=== PATIENT | male | born 1975 | race American Indian/Alaskan Native ===

== ENCOUNTER 2021-06-20 19:23 | Emergency (ER) | payer SELFPAY ==
[2021-06-20 20:21] VITALS: BP 129/97
--- NOTE | 2021-06-21 04:05 | Emergency Department Report ---
ED Male HPI - General Chief complaint: Urogenital-Male Stated complaint: DISCHARGE FROM PENIS Source: patient Mode of arrival: Ambulatory Limitations: No Limitations - History of Present Illness Initial comments: Patient is a 46-year-old -[place] male with no past medical history presents to the ED with acute onset persistent dysuria and take penile purulent discharge for the last 2 days worse in the last 12 hours. Patient also complains of hematuria, urinary frequency and urgency. Patient admits to having unprotected sexual intercourse with a female about a week ago. Patient denies fever, chills, nausea, vomiting, abdominal pain, headache, back pain, testicular pain, change in vision or sore throat. MD Complaint: penile discharge, dysuria -: Sudden, days(s) (2) Location: penis Radiation: none Severity: moderate Severity scale (0 -10): 5 Quality: aching, burning, sharp Consistency: constant Improves with: none Worsens with: urination denies other symptoms, discharge. denies: swelling, mass, rash, urinary retention, blood in urine, dysuria, fever, nausea/vomiting, incontinence - Related Data Sexually active: Yes Allergies Allergy/AdvReac Type Severity Reaction Status Date / Time No Known Allergies Allergy Unverified 06/20/21 20:17 ED Review of Systems ROS: Stated complaint: DISCHARGE FROM PENIS Other details as noted in HPI Constitutional: denies: chills, fever Eyes: denies: eye pain, eye discharge, vision change ENT: denies: ear pain, throat pain Respiratory: denies: cough, shortness of breath, wheezing Cardiovascular: denies: chest pain, palpitations Endocrine: no symptoms reported Gastrointestinal: denies: abdominal pain, nausea, diarrhea Genitourinary: urgency, dysuria, frequency, hematuria, discharge. denies: testicular pain, testicular mass Musculoskeletal: denies: back pain, joint swelling, arthralgia Skin: denies: rash, lesions Neurological: denies: headache, weakness, paresthesias Psychiatric: denies: anxiety, depression Hematological/Lymphatic: denies: easy bleeding, easy bruising ED Past Medical Hx - Past Medical History Previous Medical History?: No - Surgical History Past Surgical History?: No ED Physical Exam - General Limitations: No Limitations General appearance: alert, in no apparent distress - Head Head exam: Present: atraumatic, normocephalic, normal inspection - Eye Eye exam: Present: normal appearance, PERRL, EOMI Pupils: Present: normal accommodation - ENT ENT exam: Present: normal exam, normal orophraynx, mucous membranes moist, TM's normal bilaterally, normal external ear exam - Neck Neck exam: Present: normal inspection, full ROM - Respiratory Respiratory exam: Present: normal lung sounds bilaterally. Absent: respiratory distress, wheezes, rales, rhonchi, chest wall tenderness, accessory muscle use, decreased breath sounds, prolonged expiratory - Cardiovascular Cardiovascular Exam: Present: regular rate, normal rhythm, normal heart sounds. Absent: systolic murmur, diastolic murmur, rubs, gallop - GI/Abdominal GI/Abdominal exam: Present: soft, normal bowel sounds. Absent: tenderness, guarding, rebound, hyperactive bowel sounds, hypoactive bowel sounds, organomegaly - External exam: Present: other (Genital exam deferred at this time) - Extremities Exam Extremities exam: Present: normal inspection, full ROM, normal capillary refill - Back Exam Back exam: Present: normal inspection, full ROM. Absent: tenderness, CVA tenderness (R), CVA tenderness (L), muscle spasm, paraspinal tenderness, vertebral tenderness - Neurological Exam Neurological exam: Present: alert, oriented X3, CN II-XII intact, normal gait, reflexes normal - Psychiatric Psychiatric exam: Present: normal affect, normal mood - Skin Skin exam: Present: warm, dry, intact, normal color. Absent: rash ED Course Vital Signs 06/20/21 20:18 Temperature 98.3 F Pulse Rate 63 Respiratory 18 Rate Blood Pressure 129/97 [Right] O2 Sat by Pulse 100 Oximetry ED Medical Decision Making - Medical Decision Making This is a 46-year-old -[place] male with no past medical history presents to the ED with acute onset persistent dysuria and take penile purulent discharge for the last 2 days worse in the last 12 hours. Patient also complains of hematuria, urinary frequency and urgency. Patient admits to having unprotected sexual intercourse with a female about a week ago. In the ED, patient is alert and oriented x3 and is not in any distress. Per policy of the hospital, patient was advised to follow-up with the [facility] department for STD testing and treatment. Patient was given community resources and discharged from the ED and advised to ensure that his sexual partner also get tested and treated for suspected STD. Patient verbalized understanding although adamant that he wanted to be given a prescription for penicillin to treat his condition. - Differential Diagnosis Urethritis; gonorrhea; chlamydia; UTI Critical care attestation.: If time is entered above; I have spent that time in minutes in the direct care of this critically ill patient, excluding procedure time. ED Disposition Clinical Impression: Possible exposure to STD, Urethritis, nonspecific, Discharge from penis Disposition: 01 HOME / SELF CARE / HOMELESS Is pt being admited?: No Does the pt Need Aspirin: No Condition: Stable Instructions: Safe Sex, Urethritis, Adult Additional Instructions: Patient was advised to follow-up with the [facility] department or any urgent care facility for further evaluation. Patient was also advised to ensure that his sexual partner also gets tested for STD and treated. Referrals: [facility] Depart [Outside] - 3-5 Days Forms: STI Treatment and Prevention Time of Disposition: 04:20 Print Language: OCCITAN
== END 2021-06-21 03:32 | disposition home or self-care (01) ==
LOC: ED 19:23
DX: N34.1 Nonspecific urethritis (principal); R36.9 Urethral discharge, unspecified; Z20.2 Contact with and (suspected) exposure to infections with a predominantly sexual mode of transmission
CPT/HCPCS: 99281